=== PATIENT | male | born 1995 | race Caucasian/White ===

== ENCOUNTER 2025-08-22 18:38 | Emergency (ER) | payer OTHER, SELFPAY ==
--- OUTSIDE RECORDS SUMMARY | 2025-08-22 18:40 | XMS_ITS | Clinical Summary ---
Author Organization [facility] Address [address] [place] [address] Care Team Providers Care Oracle Security Consultant Name Role Phone Pcp, No Primary Care Provider Unavailabl e Allergies No known active allergies Medications No known medications Encounters Date Type Department Care Team Description 08/12/2025 Telephone [facility] [address] [place] [address] Jaxson Morris MD Results 08/05/2025 Telephone [facility] [address] [place] [address] Jaxson Morris MD Results 08/03/2025 7:40 AM MILK BOTTLER Office Visit [facility] [address] [place] [address] Jaxson Morris MD Allergies (Consult-hives, self referral) 08/03/2025 Travel from Last 3 Months Social History Tobacco Use Types Packs/Day Years Used Date Smoking Tobacco: Never Smokeless Tobacco: Never Tobacco Cessation:Counseling Given: Yes Sex and Gender Information Value Date Recorded Sex Assigned at Not on file Legal Sex Male 12:35 PM CDT Gender Identity Not on file Sexual Orientation Not on file Last Filed Vital Signs Vital Sign Reading Time Taken Comments Blood Pressure 144/84 08/03/2025 7:36 AM MILK BOTTLER tow er Pulse 94 08/03/2025 7:36 AM MILK BOTTLER Temperature - - Respiratory Rate - - Oxygen Saturation 98% 08/03/2025 7:36 AM MILK BOTTLER Inhaled Oxygen Concentration - - Weight 108 kg (238 lb) 08/03/2025 7:36 AM MILK BOTTLER Height - - Body Mass Index - - Plan of Treatment Health Maintenance Due Date Last Done Comments Tetanus booster 2005 Depression screening for age 12+ 2006 HIV for age 15-65 2009 BMI (ht and wt on same day) for age 18+ 2012 Hepatitis C screening for ag e 18-79 2012 Hepatitis B series for 19+ ( 1 of 3 - 19+ 3-dose series) 2013 HPV series for age 9-45 (1 - 3-dose SCDM series) 2021 COVID-19 vaccine series (3 - 2024- season) 2025 11/05/2020, 10/15/2020 Influenza Vaccine (#1) 2025 RSV vaccine for adults or (1 - 1-dose 75+ series) 2069 Pneumococcal series for age 6-49 Aged Out No longer eligible b ased on patient's age to complete this topic Procedures Procedure Name Priority Date/Time Associated Diagnosis Comments CBC WITH AUTO DIFFERENTIAL Routine 08/03/2025 8:09 AM MILK BOTTLER Hives TRYPTASE Routine 08/03/2025 8:09 AM MILK BOTTLER Hives HEPATIC FUNCTION PANEL Routine 8:09 AM MILK BOTTLER Hives BASIC METABOLIC PANEL Routine 08/03/2025 8:09 AM MILK BOTTLER Hives SEDIMENTATION RATE Routine 08/03/2025 8: 09 AM MILK BOTTLER Hives CBC WITH AUTO DIFFERENTIAL Routine 08/03/2025 8:09 AM MILK BOTTLER Hives ADONIS GRASS (G6) IGE Routine 8:09 AM MILK BOTTLER Allergic rhinitis, unspecified seasonality, unspecified trigger COMMON RAGWEED (W1) IGE Routine 08/03/2025 8:09 AM MILK BOTTLER Allergic rhinitis, unspecified seasonality, unspecified trigger [place] (T7) IGE Routine 08/03/2025 8: 09 AM MILK BOTTLER Allergic rhinitis, unspecified seasonality, unspecified trigger ROUGH MATIAS ELDER (W16) IGE Routine 08/03/2025 8:09 AM MILK BOTTLER Allergic rhinitis, unspecified seasonality, unspecified trigger MAPLE (BOX ELDER) (T1)IGE Routine 08/03/2025 8:09 AM MILK BOTTLER Allergic rhinitis, unspecified seasonality, unspecified trigger H HALODES (M8) IGE Routine 08/03/2025 8: 09 AM MILK BOTTLER Allergic rhinitis, unspecified seasonality, unspecified trigger EPICOCCUM PURPUR IGE Routine 08/03/2025 8:09 AM MILK BOTTLER Allergic rhinitis, unspecified seasonality, unspecified trigger ELM (T8) IGE Routine 08/03/2025 8:09 AM MILK BOTTLER Allergic rhinitis, unspecified seasonality, unspecified trigger DOG DANDER (E5) IGE Routine 08/03/2025 8 :09 AM MILK BOTTLER Allergic rhinitis, unspecified seasonality, unspecified trigger D PTERONYSSINUS (D1) IGE Routine 08/03/2025 8:09 AM MILK BOTTLER Allergic rhinitis, unspecified seasonality, unspecified trigger D FARINAE (D2) IGE Routine 08/03/2025 8: 09 AM MILK BOTTLER Allergic rhinitis, unspecified seasonality, unspecified trigger COCKLEBUR IGE Routine 08/03/2025 8:09 AM MILK BOTTLER Allergic rhinitis, unspecified seasonality, unspecified trigger CLADOSPORIUM HERBARUM IGE Routine 08/03/2025 8:09 AM MILK BOTTLER Allergic rhinitis, unspecified seasonality, unspecified trigger CAT DANDER (E1) IGE Routine 08/03/2025 8 :09 AM MILK BOTTLER Allergic rhinitis, unspecified seasonality, unspecified trigger BIRCH (T3) IGE Routine 08/03/2025 8:09 AM MILK BOTTLER Allergic rhinitis, unspecified seasonality, unspecified trigger ASPERGILLUS FUMIGATUS IGE Routine 08/03/2025 8:09 AM MILK BOTTLER Allergic rhinitis, unspecified seasonality, unspecified trigger WHITE JASEN (T15) IGE Routine 08/03/2025 8 :09 AM MILK BOTTLER Allergic rhinitis, unspecified seasonality, unspecified trigger ALTERNARIA ALTERNATA (M6) IGE Routine 08/03/2025 8:09 AM MILK BOTTLER Allergic rhinitis, unspecified seasonality, unspecified trigger from Last 3 Months Results * SEDIMENTATION RATE (08/03/2025 8:09 AM MILK BOTTLER) SED RATE BY BETY QUINONEZ 2 < OR = 15 mm/h 08/04/2025 4:16 AM MILK BOTTLER [facility] Blood BLOOD SPECIMEN / Unknown [facility] / Unknown 08/03/2025 8:09 AM MILK BOTTLER 08/03/2025 8:10 AM MILK BOTTLER Narrative [facility] - 08/04/2025 4:16 AM MILK BOTTLER FASTING:UNKNOWN FASTING: UNKNOWN Jaxson Morris MD HEMATOLOGY Final Resu lt Performing Organization Address [facility] Co de Phone Number [facility] [address] [address], * COCKLEBUR IGE (08/03/2025 8:09 AM MILK BOTTLER) [place] (W13) IGE CLASS <0.10 kU/L 08/04/2025 6:44 PM MILK BOTTLER [facility] COCKLE[place] (W13) IGE CLASS 0 08/04/2025 6:44 PM MILK BOTTLER [facility] Blood BLOOD SPECIMEN / Unknown [facility] / Unknown 08/03/2025 8:09 AM MILK BOTTLER 08/03/2025 8:10 AM MILK BOTTLER Narrative [facility] - 08/04/2025 6:44 PM MILK BOTTLER FASTING:UNKNOWN FASTING: UNKNOWN us Jaxson Morris MD SEND OUTS Final Resu lt Performing Organization Address City/[facility]/ZIP Co de Phone Number [facility] [address] [phone], * EPICOCCUM PURPUR IGE (08/03/2025 8:09 AM MILK BOTTLER) Pathologist [facility] EPICOCCUM PURPURASCENS (M14) IGE <0.10 kU/L 08/04/2025 6:44 PM MILK BOTTLER [facility] EPICOCCUM PURPURASCENS (M14) IGE CLASS 0 08/04/2025 6:44 PM MILK BOTTLER [facility] Blood BLOOD SPECIMEN / Unknown [facility] / Unknown 08/03/2025 8:09 AM MILK BOTTLER 08/03/2025 8:10 AM MILK BOTTLER Narrative [facility] - 08/04/2025 6:44 PM MILK BOTTLER FASTING:UNKNOWN FASTING: UNKNOWN Jaxson Morris MD SEND OUTS Final Resu lt Performing Organization Address [facility]/ZIP Co de Phone Number [facility] [address] [address], * TRYPTASE (08/03/2025 8:09 AM MILK BOTTLER) Pathologist [facility] TRYPTASE 2.6 <11.0 mcg/L 08/11/2025 11:13 PM MILK BOTTLER [facility] Blood BLOOD SPECIMEN / Unknown [facility] / Unknown 08/03/2025 8:09 AM MILK BOTTLER 08/03/2025 8:10 AM MILK BOTTLER Narrative [facility] - 08/11/2025 11:13 PM MILK BOTTLER FASTING:UNKNOWN FASTING: UNKNOWN Jaxson Morris MD SEND OUTS Final Resu lt [facility] [address] [address], * CBC WITH AUTO DIFFERENTIAL (08/03/2025 8:09 AM MILK BOTTLER) Pathologist [facility] WHITE BLOOD CELL COUNT 9.2 3.8 - 10.8 Thousand/u L 08/04/2025 3:11 AM MILK BOTTLER [facility] RED BLOOD CELL COUNT 5.06 4.20 - 5.80 Million/uL 08/04/2025 3:11 AM MILK BOTTLER [facility] HEMOGLOBIN 16.1 13.2 - 17.1 g/dL 08/04/2025 3:11 AM MILK BOTTLER [facility] HEMATOCRIT 46.2 38.5 - 50.0 % 08/04/2025 3:11 AM MILK BOTTLER [facility] MCV 91.3 80.0 - 100.0 fL 08/04/2025 3:11 AM MILK BOTTLER [facility] MCH 31.8 27.0 - 33.0 pg 08/04/2025 3:11 AM MILK BOTTLER [facility] MCHC 34.8 32.0 - 36.0 g/dL 08/04/2025 3:11 AM MILK BOTTLER [facility] Comment: For adults, a slight decrease in the calculated MCHC value (in the range of 30 to 32 g/dL) is most likely not clinically significant; however, it should be interpreted with caution in correlation with other red cell parameters and the patient's clinical condition. RDW 12.6 11.0 - 15.0 % 08/04/2025 3:11 AM MILK BOTTLER [facility] PLATELET COUNT 331 140 - 400 Thousand/u L 08/04/2025 3:11 AM MILK BOTTLER [facility] MPV 10.7 7.5 - 12.5 fL 08/04/2025 3:11 AM MILK BOTTLER [facility] NEUTROPHILS 46.7 % 08/04/2025 3:11 AM MILK BOTTLER [facility] LYMPHOCYTES 41.3 % 08/04/2025 3:11 AM MILK BOTTLER [facility] MONOCYTES 5.6 % 08/04/2025 3:11 AM MILK BOTTLER [facility] EOSINOPHILS 5.2 % 08/04/2025 3:11 AM MILK BOTTLER [facility] BASOPHILS 1.2 % 08/04/2025 3:11 AM MILK BOTTLER [facility] ABSOLUTE NEUTROPHILS 4296 1500 - 7800 cells/uL 08/04/2025 3:11 AM MILK BOTTLER [facility] ABSOLUTE LYMPHOCYTES 3800 850 - 3900 cells/uL 08/04/2025 3:11 AM MILK BOTTLER [facility] ABSOLUTE MONOCYTES 515 200 - 950 cells/uL 08/04/2025 3:11 AM MILK BOTTLER [facility] ABSOLUTE EOSINOPHILS 478 15 - 500 cells/uL 08/04/2025 3:11 AM MILK BOTTLER [facility] ABSOLUTE BASOPHILS 110 0 - 200 cells/uL 08/04/2025 3:11 AM MILK BOTTLER [facility] Blood BLOOD SPECIMEN / Unknown [facility] / Unknown 08/03/2025 8:09 AM MILK BOTTLER 08/03/2025 8:10 AM MILK BOTTLER Narrative [facility] - 08/04/2025 3:11 AM MILK BOTTLER FASTING:UNKNOWN FASTING: UNKNOWN us Jaxson Morris MD HEMATOLOGY Final Resu lt Performing Organization Address City/[facility]/ZIP Co de Phone Number [facility] [address] [address], [place] [phone] * WHITE JASEN (T15) IGE (08/03/2025 8:09 AM MILK BOTTLER) WHITE JASEN (T15) IGE <0.10 kU/L 08/04/2025 6:44 PM MILK BOTTLER [facility] WHITE JASEN (T15) IGE CLASS 0 08/04/2025 6:44 PM MILK BOTTLER [facility] Blood BLOOD SPECIMEN / Unknown [facility] / Unknown 08/03/2025 8:09 AM MILK BOTTLER 08/03/2025 8:10 AM MILK BOTTLER Narrative [facility] - 08/04/2025 6:44 PM MILK BOTTLER FASTING:UNKNOWN FASTING: UNKNOWN Jaxson Morris MD SEND OUTS Final Resu lt Performing Organization Address City/[facility]/ZIP Co de Phone Number [facility] [address] [address], [place] [phone] * ROUGH FLORENCIO SCHUSTER (W16) IGE (08/03/2025 8:09 AM MILK BOTTLER) ROUGH FLORENCIO SCHUSTER (W16) IGE <0.10 kU/L 08/04/2025 6:44 PM MILK BOTTLER [facility] ROUGH MATIAS ELDER (W16) IGE CLASS 0 08/04/2025 6:44 PM MILK BOTTLER [facility] Blood BLOOD SPECIMEN / Unknown [facility] / Unknown 08/03/2025 8:09 AM MILK BOTTLER 08/03/2025 8:10 AM MILK BOTTLER Narrative [facility] - 08/04/2025 6:44 PM MILK BOTTLER FASTING:UNKNOWN FASTING: UNKNOWN us Jaxson Morris MD SEND OUTS Final Resu lt Performing Organization Address [facility] de Phone Number [facility] [address] [address], * (ABNORMAL) COMMON RAGWEED (W1) IGE (08/03/2025 8:09 AM MILK BOTTLER) Pathologist [facility] COMMON RAGWEED (SHORT) (W1) IGE 0.34(H) kU/L 08/04/2025 6:44 PM MILK BOTTLER [facility] COMMON RAGWEED (SHORT) (W1) IGE CLASS 0/1 08/04/2025 6:44 PM MILK BOTTLER [facility] Blood BLOOD SPECIMEN / Unknown [facility] / Unknown 08/03/2025 8:09 AM MILK BOTTLER 08/03/2025 8:10 AM MILK BOTTLER Narrative [facility] - 08/04/2025 6:44 PM MILK BOTTLER FASTING:UNKNOWN FASTING: UNKNOWN Jaxson Morris MD SEND OUTS Final Resu lt Performing Organization Address [facility] de Phone Number [facility] [address] [address], * H HALODES (M8) IGE (08/03/2025 8:09 AM MILK BOTTLER) [facility] HELMINTHOSPORIUM HALODES (M8) IGE <0.10 kU/L 08/04/2025 6:44 PM MILK BOTTLER [facility] HELMINTHOSPORIUM HALODES (M8) IGE CLASS 0 08/04/2025 6:44 PM MILK BOTTLER [facility] INTERPRETATION SEE NOTE 08/04/2025 6:44 PM MILK BOTTLER [facility] Comment: Specific Level of Allergen IGE Class kU/L Specific IGE Antibody ----- --------- 0 <0.10 Absent/Undetectable 0/1 0.10-0.34 Very Low Level 1 0.35-0.69 Low Level 2 0.70-3.49 Moderate Level 3 3.50-17.4 High Level 4 17.5-49.9 Very High Level 5 50-100 Very High Level 6 >100 Very High Level The clinical relevance of allergen results of 0.10-0.34 kU/L are undetermined and intended for specialist use. Allergens denoted with a include results using one or more analyte specific reagents. In those cases, the test was developed and its analytical performance characteristics have been determined by [employer]. It has not been cleared or approved by the U.S. Food and Drug Administration. This assay has been validated pursuant to the CLIA regulations and is used for clinical purposes. Blood BLOOD SPECIMEN / Unknown [facility] / Unknown 08/03/2025 8:09 AM MILK BOTTLER 08/03/2025 8:10 AM MILK BOTTLER Narrative [facility] - 08/04/2025 6:44 PM MILK BOTTLER FASTING:UNKNOWN FASTING: UNKNOWN us Jaxson Morris MD SEND OUTS Final Resu lt Performing Organization Address [facility] Co de Phone Number [facility] [address] [address], * [place] (T8) IGE (08/03/2025 8:09 AM MILK BOTTLER) [place] (T8) IGE <0.10 kU/L 08/04/2025 6:44 PM MILK BOTTLER [facility] [place] (T8) IGE CLASS 0 08/04/2025 6:44 PM MILK BOTTLER [facility] Blood BLOOD SPECIMEN / Unknown [facility] / Unknown 08/03/2025 8:09 AM MILK BOTTLER 08/03/2025 8:10 AM MILK BOTTLER Narrative [facility] - 08/04/2025 6:44 PM MILK BOTTLER FASTING:UNKNOWN FASTING: UNKNOWN us Jaxson Morris MD SEND OUTS Final Resu lt Performing Organization Address [facility] de Phone Number [facility] [address] [address], * MAPLE (BOX ELDER) (T1)IGE (08/03/2025 8:09 AM MILK BOTTLER) MAPLE (BOX ELDER) (T1) IGE <0.10 kU/L 08/04/2025 6:44 PM MILK BOTTLER [facility] MAPLE (BOX ELDER) (T1) IGE CLASS 0 08/04/2025 6:44 PM MILK BOTTLER [facility] Blood BLOOD SPECIMEN / Unknown [facility] / Unknown 08/03/2025 8:09 AM MILK BOTTLER 08/03/2025 8:10 AM MILK BOTTLER Narrative [facility] - 08/04/2025 6:44 PM MILK BOTTLER FASTING:UNKNOWN FASTING: UNKNOWN Jaxson Morris MD SEND OUTS Final Resu lt [facility] [address] [address], [place] [phone] * (ABNORMAL) BIRCH (T3) IGE (08/03/2025 8:09 AM MILK BOTTLER) BIRCH (T3) IGE 0.44(H) kU/L 08/04/2025 6:44 PM MILK BOTTLER [facility] BIRCH (T3) IGE CLASS 1 08/04/2025 6:44 PM MILK BOTTLER [facility] Blood BLOOD SPECIMEN / Unknown [facility] / Unknown 08/03/2025 8:09 AM MILK BOTTLER 08/03/2025 8:10 AM MILK BOTTLER Narrative [facility] - 08/04/2025 6:44 PM MILK BOTTLER FASTING:UNKNOWN FASTING: UNKNOWN Jaxson Morris MD SEND OUTS Final Resu lt Performing Organization Address City/[facility]/ZIP Co de Phone Number [facility] [address] [address], [place] [phone] * D PTERONYSSINUS (D1) IGE (08/03/2025 8:09 AM MILK BOTTLER) DERMATOPHAGOIDES PTERONYSSINUS (D1) IGE <0.10 kU/L 08/04/2025 6:44 PM MILK BOTTLER [facility] DERMATOPHAGOIDES PTERONYSSINUS (D1) IGE CLASS 0 08/04/2025 6:44 PM MILK BOTTLER [facility] Blood BLOOD SPECIMEN / Unknown [facility] / Unknown 08/03/2025 8:09 AM MILK BOTTLER 08/03/2025 8:10 AM MILK BOTTLER Narrative [facility] - 08/04/2025 6:44 PM MILK BOTTLER FASTING:UNKNOWN FASTING: UNKNOWN Jaxson Morris MD SEND OUTS Final Resu lt Performing Organization Address [facility] de Phone Number [facility] [address] [address], [place] [phone] * ASPERGILLUS FUMIGATUS IGE (08/03/2025 8:09 AM MILK BOTTLER) ASPERGILLUS FUMIGATUS (M3) IGE <0.10 kU/L 08/04/2025 6:44 PM MILK BOTTLER [facility] ASPERGILLUS FUMIGATUS (M3) IGE CLASS 0 08/04/2025 6:44 PM MILK BOTTLER [facility] Blood BLOOD SPECIMEN / Unknown [facility] / Unknown 08/03/2025 8:09 AM MILK BOTTLER 08/03/2025 8:10 AM MILK BOTTLER Narrative [facility] - 08/04/2025 6:44 PM MILK BOTTLER FASTING:UNKNOWN FASTING: UNKNOWN Jaxson Morris MD SEND OUTS Final Resu lt Performing Organization Address [facility] de Phone Number [facility] [address] [address], [place] [phone] * ADONIS GRASS (G6) IGE (08/03/2025 8:09 AM MILK BOTTLER) ADONIS GRASS (G6) IGE <0.10 kU/L 08/04/2025 6:44 PM MILK BOTTLER [facility] ADONIS GRASS (G6) IGE CLASS 0 08/04/2025 6:44 PM MILK BOTTLER [facility] Blood BLOOD SPECIMEN / Unknown [facility] / Unknown 08/03/2025 8:09 AM MILK BOTTLER 08/03/2025 8:10 AM MILK BOTTLER Narrative [facility] - 08/04/2025 6:44 PM MILK BOTTLER FASTING:UNKNOWN FASTING: UNKNOWN Jaxson Morris MD SEND OUTS Final Resu lt Performing Organization Address City/[facility]/ZIP Co de Phone Number [facility] [address] [address], [place] [phone] * CLADOSPORIUM HERBARUM IGE (08/03/2025 8:09 AM MILK BOTTLER) [facility] CLADOSPORIUM HERBARUM (M2) IGE <0.10 kU/L 08/04/2025 6:44 PM MILK BOTTLER [facility] CLADOSPORIUM HERBARUM (M2) IGE CLASS 0 08/04/2025 6:44 PM MILK BOTTLER [facility] Blood BLOOD SPECIMEN / Unknown [facility] / Unknown 08/03/2025 8:09 AM MILK BOTTLER 08/03/2025 8:10 AM MILK BOTTLER Narrative [facility] - 08/04/2025 6:44 PM MILK BOTTLER FASTING:UNKNOWN FASTING: UNKNOWN Jaxson Morris MD SEND OUTS Final Resu lt Performing Organization Address [facility]/ZIP Co de Phone Number [facility] [address] [address], [place] [phone] * [place] (T7) IGE (08/03/2025 8:09 AM MILK BOTTLER) [facility] [place] (T7) IGE <0.10 kU/L 08/04/2025 6:44 PM MILK BOTTLER [facility] [place] (T7) IGE CLASS 0 08/04/2025 6:44 PM MILK BOTTLER [facility] Blood BLOOD SPECIMEN / Unknown [facility] / Unknown 08/03/2025 8:09 AM MILK BOTTLER 08/03/2025 8:10 AM MILK BOTTLER Narrative [facility] - 08/04/2025 6:44 PM MILK BOTTLER FASTING:UNKNOWN FASTING: UNKNOWN Jaxson Morris MD SEND OUTS Final Resu lt Performing Organization Address [facility]/ZIP Co de Phone Number [facility] [address] [address], [place] [phone] * DOG DANDER (E5) IGE (08/03/2025 8:09 AM MILK BOTTLER) [facility] DOG DANDER (E5) IGE <0.10 kU/L 08/04/2025 6:44 PM MILK BOTTLER [facility] DOG DANDER (E5) IGE CLASS 0 08/04/2025 6:44 PM MILK BOTTLER [facility] Blood BLOOD SPECIMEN / Unknown [facility] / Unknown 08/03/2025 8:09 AM MILK BOTTLER 08/03/2025 8:10 AM MILK BOTTLER Narrative [facility] - 08/04/2025 6:44 PM MILK BOTTLER FASTING:UNKNOWN FASTING: UNKNOWN Jaxson oMrris MD SEND OUTS Final Resu lt Performing Organization Address [facility]/ZIP Co de Phone Number [facility] [address] [address], [place] [phone] * ALTERNARIA ALTERNATA (M6) IGE (08/03/2025 8:09 AM MILK BOTTLER) ALTERNARIA ALTERNATA (M6) IGE <0.10 kU/L 08/04/2025 6:44 PM MILK BOTTLER [facility] ALTERNARIA ALTERNATA (M6) IGE CLASS 0 08/04/2025 6:44 PM MILK BOTTLER [facility] Blood BLOOD SPECIMEN / Unknown [facility] / Unknown 08/03/2025 8:09 AM MILK BOTTLER 08/03/2025 8:10 AM MILK BOTTLER Narrative [facility] - 08/04/2025 6:44 PM MILK BOTTLER FASTING:UNKNOWN FASTING: UNKNOWN Jaxson Morris MD SEND OUTS Final Resu lt Performing Organization Address City/[facility]/ZIP Co de Phone Number [facility] [address] [address], [place] [phone] * D FARINAE (D2) IGE (08/03/2025 8:09 AM MILK BOTTLER) DERMATOPHAGOIDES FARINAE (D2) IGE <0.10 kU/L 08/04/2025 6:44 PM MILK BOTTLER [facility] DERMATOPHAGOIDES FARINAE (D2) IGE CLASS 0 08/04/2025 6:44 PM MILK BOTTLER [facility] Blood BLOOD SPECIMEN / Unknown [facility] / Unknown 08/03/2025 8:09 AM MILK BOTTLER 08/03/2025 8:10 AM MILK BOTTLER Narrative [facility] - 08/04/2025 6:44 PM MILK BOTTLER FASTING:UNKNOWN FASTING: UNKNOWN Jaxson Morris MD SEND OUTS Final Resu lt Performing Organization Address [facility]/ZIP Co de Phone Number [facility] [address] [address], [place] [phone] * CAT DANDER (E1) IGE (08/03/2025 8:09 AM MILK BOTTLER) CAT DANDER (E1) IGE <0.10 kU/L 08/04/2025 6:44 PM MILK BOTTLER [facility] CAT DANDER (E1) IGE CLASS 0 08/04/2025 6:44 PM MILK BOTTLER [facility] Blood BLOOD SPECIMEN / Unknown [facility] / Unknown 08/03/2025 8:09 AM MILK BOTTLER 08/03/2025 8:10 AM MILK BOTTLER Narrative [facility] - 08/04/2025 6:44 PM MILK BOTTLER FASTING:UNKNOWN FASTING: UNKNOWN Jaxson Morris MD SEND OUTS Final Resu lt Performing Organization Address [facility]/ZIP Co de Phone Number [facility] [address] [address], [place] [phone] * HEPATIC FUNCTION PANEL (08/03/2025 8:09 AM MILK BOTTLER) ALBUMIN 4.6 3.6 - 5.1 g/dL 08/04/2025 5:01 AM MILK BOTTLER [facility] PROTEIN, TOTAL 7.5 6.1 - 8.1 g/dL 08/04/2025 5:01 AM MILK BOTTLER [facility] BILIRUBIN, TOTAL 0.4 0.2 - 1.2 mg/dL 08/04/2025 5:01 AM MILK BOTTLER [facility] BILIRUBIN, DIRECT 0.1 < OR = 0.2 mg/dL 08/04/2025 5:01 AM MILK BOTTLER [facility] BILIRUBIN, INDIRECT 0.3 0.2 - 1.2 mg/dL (calc) 08/04/2025 5:01 AM MILK BOTTLER [facility] ALKALINE PHOSPHATASE 95 36 - 130 U/L 08/04/2025 5:01 AM MILK BOTTLER [facility] ALT 20 9 - 46 U/L 08/04/2025 5:01 AM MILK BOTTLER [facility] AST 16 10 - 40 U/L 08/04/2025 5:01 AM MILK BOTTLER [facility] GLOBULIN 2.9 1.9 - 3.7 g/dL (calc) 08/04/2025 5:01 AM [employer] [facility] ALBUMIN/GLOBULIN RATIO 1.6 1.0 - 2.5 (calc) 08/04/2025 5:01 AM [employer] [facility] Blood BLOOD SPECIMEN / Unknown [facility] / Unknown 08/03/2025 8:09 AM [facility] 08/03/2025 8:10 AM [facility] Narrative [facility] - 08/04/2025 5:01 AM [employer] FASTING:UNKNOWN FASTING: UNKNOWN Jaxson Morris MD CHEMISTRY Final Resu lt [facility] [address] [place] [address], * (ABNORMAL) BASIC METABOLIC PANEL (08/03/2025 8:09 AM [facility]) SODIUM 139 135 - 146 mmol/L 08/04/2025 5:01 AM [employer] [facility] POTASSIUM 4.1 3.5 - 5.3 mmol/L 08/04/2025 5:01 AM [employer] CARBON DIOXIDE 30 20 - 32 mmol/L 08/04/2025 5:01 AM [employer] [facility] GLUCOSE 117(H) 65 - 99 mg/dL 08/04/2025 5:01 AM [employer] [facility] Comment: Fasting reference interval For someone without known diabetes, a glucose value between 100 and 125 mg/dL is consistent with prediabetes and should be confirmed with a follow-up test. CALCIUM 10.0 8.6 - 10.3 mg/dL 08/04/2025 5:01 AM [employer] [facility] CREATININE 1.06 0.60 - 1.26 mg/dL 08/04/2025 5:01 AM [employer] BUN/CREATININE RATIO SEE NOTE: 6 - 22 (calc) 08/04/2025 5:01 AM [facility] Comment: Not Reported: BUN and Creatinine are within reference range. EGFR 96 > OR = 60 mL/min/1. 73m2 08/04/2025 5:01 AM [employer] [facility] UREA NITROGEN (BUN) 15 7 - 25 mg/dL 08/04/2025 5:01 AM [employer] [facility] ELECTROLYTE BALANCE 6(L) 7 - 17 mmol/L (calc) 08/04/2025 5:01 AM [employer] [facility] CHLORIDE 103 98 - 110 mmol/L 08/04/2025 5:01 AM [employer] [facility] Blood BLOOD SPECIMEN / Unknown [facility] / Unknown 08/03/2025 8:09 AM [facility] 08/03/2025 8:10 AM [employer] Narrative [facility] - 08/04/2025 5:01 AM [employer] FASTING:UNKNOWN FASTING: UNKNOWN us Jaxson Morris MD CHEMISTRY Final Resu lt [facility] [address] [address], from Last 3 Months Insurance [facility] [employer] Care Teams 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 PCP - General 05/29/25
[2025-08-22 19:01] VITALS: BP 141/83; PULSE 76; RESP 18; TEMP 36.8; O2SAT 99; BMI 30.7
--- NOTE | 2025-08-22 19:58 | ED_ITS ---
HPI - Abdominal Pain General Chief Complaint: Abdominal Pain Stated Complaint: Stomach Pains Time Seen by Provider: 08/22/25 19:44 History of Present Illness HPI narrative: This 30-year-old male comes in reporting abdominal pain. He states that he had food poisoning 6 days ago with diarrhea and vomiting but no pain. Those symptoms resolved over the next day or so but he did take Zofran. This caused him to be constipated. He then took MiraLax and senna and now is had bowel movement today but comes in because of severe crampy abdominal pain that occurred prior to arrival. He did take ibuprofen and states that he is feeling better now. The pain seemed more localized in the right abdomen. He does not report any current nausea or vomiting. He has not had any fevers. He has not had any decrease in his appetite. He is otherwise in good health. Related Data Home Medications ?Medication ?Instructions ?Recorded ?Confirmed No Known Home Medications 08/22/25 1203/11 Allergies Allergy/AdvReac Type Severity Reaction Status Date / Time No Known Drug Allergies Allergy Verified 08/22/25 19:03 Review of Systems Status of ROS Reports: 10 or more systems reviewed and unremarkable except as noted in History and below Narrative Constitutional: No fevers, no weight gain or loss. Eyes: No discharge. No vision changes. HENT: No congestion, no sore throat, no ear pain. Cardiovascular: No chest pain, no palpitations. Respiratory: No shortness of breath, no wheezes, no cough. Gastrointestinal: Vomiting and diarrhea 5-6 days ago. Abdominal pain began today and is crampy pain. Genitourinary: No dysuria, no hematuria. Musculoskeletal: Normal range of motion. Skin: No rashes, no pruritis. Neurological: No dizziness, weakness, sensory change, speech change. Endo/Heme/Allergies: No bruising or bleeding. No polydipsia. Pysch: no suicidality, no anxiety, no insomnia. All other systems reviewed and are negative. [facility] Medical History (Updated 08/22/25 @ 21:23 by Issac Arzola MD) No significant past medical history Surgical History (Updated 08/22/25 @ 19:34 by Owen Martínez RN) No significant past surgical history Social History Smoking Status: Never smoker Second hand tobacco smoke exposure: No How often do you have a drink containing alcohol: never AUDIT-C Alcohol total score: 0 Non-prescribed substance use: denies use Exam Narrative: Exam Narrative: Constitutional: Well-developed, well-nourished, no acute distress. HEENT: Normocephalic, atraumatic. Neck: Normal range of motion. Nontender. Supple. Heart: Regular. No murmurs. Normal rate. Intact distal pulses. Lungs: Clear to auscultation. No chest discomfort. No wheezes, rhonchi, or rales. Abdomen: Normal bowel sounds. Mild tenderness currently in the right abdomen. No rebound tenderness. Genitalia: Deferred. Back: No midline tenderness. Normal range of motion. Extremities: Normal range of motion. No injury. Skin: Intact. No rash. Warm. No erythema or pallor. Neurologic: No altered sensation. No weakness. Alert and oriented. Psychiatric: No suicidality. No anxiety or depression. No insomnia. Nursing notes and vitals signs are reviewed. Const: Vital Signs, click to edit/add: Vital Signs - 24 hr 08/22/25 19:01 Temperature 98.3 F Pulse Rate [Right Pulse Oximeter] 76 Respiratory Rate 18 Blood Pressure [Ri ght Upper Arm] 141/83 H Pulse Oximetry 99 Oxygen Delivery Me thod Room Air Course Vital Signs Vital signs: Initial Vital Signs Temperature 98.3 F 08/22/25 19:01 Temperature Source Temporal Artery Scan 08/22/25 19:01 Pulse Rate 76 08/22/25 19:01 Respiratory Rate 18 08/22/25 19:01 Blood Pressure 141/83 H 08/22/25 19:01 Blood Pressure Mean 102 08/22/25 19:01 Blood Pressure Position Sitting 08/22/25 19:01 Pulse Oximetry 99 08/22/25 19:01 Oxygen Delivery Method Room Air 08/22/25 19:01 Vital Signs Temperature 98.3 F 08/22/25 19:01 Pulse Rate 76 08/22/25 19:01 Respiratory Rate 18 08/22/25 19:01 Blood Pressure 141/83 H 08/22/25 19:01 Pulse Oximetry 99 08/22/25 19:01 Oxygen Delivery Method Room Air 08/22/25 19:01 Temperature 98.3 F 08/22/25 19:01 Pulse Rate 76 08/22/25 19:01 Respiratory Rate 18 08/22/25 19:01 Blood Pressure 141/83 H 08/22/25 19:01 Pulse Oximetry 99 08/22/25 19:01 Oxygen Delivery Method Room Air 08/22/25 19:01 MDM - Abdominal Pain MDM Narrative Medical decision making narrative: This patient had intense abdominal pain and cramping. His symptoms are much better now. His exam is also reassuring as are his vital signs. I did discuss lab and imaging options and the patient decided to have some imaging and labs done as he has never had pain this intense before. CT scan returns without any acute findings. There is a area of distended bowel from stool and gas in the right lower quadrant where he did have pain. Lab results are also reassuring here. He is okay to be discharged home. Lab Data Labs: Lab Results 08/22/25 Range/Units 20:20 WBC 10.03 (4.50-11.00) K/uL RBC 5.27 (4.30-5.90) m/uL Hgb 16.2 (13.5-17.5) gm/dL Hct 46.5 (37.0-53.0) % MCV 88 (80-100) fL MCH 31 (26-34) pg MCHC 35 (32-36) gm/dL RDW Coeff of Yolette 11.5 (11.5-15.5) % Plt Count 298 (140-440) K/uL Neut % (Auto) 54.1 (42.0-72.0) % Lymph % (Auto) 35.2 (20-44) % Cook % (Auto) 6.7 (0.0-11.0) % Eos % (Auto) 3.4 (0.0-7.0) % Baso % (Auto) 0.5 (0.0-3.0) % Neut # (Auto) 5.43 (1.7-7.0) K/uL Lymph # (Auto) 3.53 H (0.90-2.90) K/uL Cook # (Auto) 0.70 (0.00-0.90) K/UL Eos # (Auto) 0.34 (0.00-0.50) K/uL Baso # (Auto) 0.05 (0.00-0.30) K/uL Abs Immat Gran (auto) 0.01 (0.00-0.30) K/uL Imm/Tot Granulo (auto) 0.1 % Sodium 140 (135-149) mmol/L Potassium 4.2 (3.6-5.1) mmol/L Chloride 97 (96-114) mmol/L Carbon Dioxide 28 (20-32) mmol/L Anion Gap 15 (7-15) mEq/L BUN 12 (5-24) mg/dL Creatinine 1.2 (0.5-1.5) mg/dL Estimated Creat Clear 95.00 Estimated GFR 83 ml/min Glucose 101 (60-115) mg/dL Calcium 9.5 (8.4-10.6) mg/dL Discharge Plan Discharge Clinical Impression: Abdominal pain Patient Disposition: Home, Self-Care Condition: Improved Additional Instructions: Continue current plans. Use [id number] medicines as needed and directed. Follow up with MD return if worsening. Prescriptions: No Action No Known Home Medications Follow Up/Referrals: Provider,Not a Local [Primary Care Provider, Family Practice] Stand Alone Forms: SPIL GAMESealth Info Instructions
--- NOTE | 2025-08-22 20:07 | CRLHL7_ITS ---
For Patients: As a result of the Century Cures Act, medical imaging exams and procedure reports are released immediately into your electronic medical record. You may view this report before your referring provider. If you have questions, please contact your health care provider. INDICATION: Crampy abdominal pain. TECHNIQUE: CT abdomen and pelvis acquired with 98 cc of Isovue 370 IV contrast. COMPARISON: None. FINDINGS: Lower chest: Unremarkable. Liver: Unremarkable. Normal in size and attenuation. No suspicious masses. Gallbladder and bile ducts: Unremarkable. No stones or inflammation. No biliary dilatation. Pancreas: Unremarkable. No mass or inflammation. Spleen: Unremarkable. Normal in size. No masses. Adrenal glands: Unremarkable. No nodules. Kidneys: Unremarkable. No suspicious masses, stones, or hydronephrosis. GI tract: Unremarkable. Normal in caliber. No sign of mass or inflammation. Normal appendix. Vasculature: Abdominal aorta is normal in caliber. Mesenteric arteries are patent. Lymph nodes: No lymphadenopathy. Peritoneum/Abdominal Wall: Unremarkable. No free air or significant free fluid. Pelvis: Unremarkable. Bones: Unremarkable for age. IMPRESSION: No acute findings within the abdomen or pelvis. Normal appendix. Please note that all CT scans at this facility use dose modulation, iterative reconstruction, and/or weight-based dosing when appropriate to reduce radiation dose to as low as reasonably achievable. Dictated by Sachin Negrete MD @ 08/22/2025 8:43:56 PM (Electronically Signed)
[2025-08-22 20:25] LABS: Hematocrit* 46.5 % (37.0-53.0); Hemoglobin* 16.2 gm/dL (13.5-17.5); Immature Granulocytes Abs Auto 0.01 K/uL (0.00-0.30); Immature Granulocytes Pct Auto 0.1 %; Lymphocytes Absolute Auto 3.53 K/uL (0.90-2.90); Mean Corpuscular HGB Conc 35 gm/dL (32-36); Mean Corpuscular Hemoglobin 31 pg (26-34); Mean Corpuscular Volume 88 fL (80-100); RDW Coefficient of Variation % 11.5 % (11.5-15.5); Red Blood Count* 5.27 m/uL (4.30-5.90); White Blood Count* 10.03 K/uL (4.50-11.00)
[2025-08-22 20:30] LABS: Slide Review Reflex No
[2025-08-22 20:39] LABS: Chloride* 97 mmol/L (96-114)
[2025-08-22 20:40] LABS: Potassium* 4.2 mmol/L (3.6-5.1); Sodium* 140 mmol/L (135-149)
[2025-08-22 20:42] LABS: Blood Urea Nitrogen* 12 mg/dL (5-24); Creatinine* 1.2 mg/dL (0.5-1.5); Est. Creatinine Clearance* 95.00; Estimated Glomerular Filt Rate 83 ml/min
[2025-08-22 20:43] LABS: Anion Gap 15 mEq/L (7-15); Calcium* 9.5 mg/dL (8.4-10.6); Carbon Dioxide* 28 mmol/L (20-32); Glucose* 101 mg/dL (60-115)
[2025-08-22 21:33] VITALS: BP 132/70; PULSE 70; RESP 18; TEMP 36.8; O2SAT 99
[2025-08-22 21:34] VITALS: BP 132/70; PULSE 70; RESP 18; TEMP 36.8
== END 2025-08-22 21:35 | disposition home or self-care (01) ==
PROVIDERS: Emergency Provider Emergency Medicine Emergency Medical Services
DX: R10.31 Right lower quadrant pain (principal)
CPT/HCPCS: 36415; 74177; 80048; 85025; 99284; 99285; Q9967